=== PATIENT | male | born 1990 | race African-American/Black ===

== ENCOUNTER 2017-01-11 18:46 | Emergency (ER) | payer MEDICAID, OTHER ==
[~2017-01-11] VITALS: Ht 175.3 cm; Wt 75.0 kg
[2017-01-11 18:53] VITALS: BP 126/56
== END 2017-01-11 23:20 | disposition left against medical advice (07) ==
LOC: ER 18:46
DX: Z53.21 Procedure and treatment not carried out due to patient leaving prior to being seen by health care provider (principal)